=== PATIENT | male | born 1960 | race Caucasian/White ===

== ENCOUNTER → 2021-10-01 | Outpatient (CLI) | payer BC ==
--- NOTE | 2021-10-01 14:00 | Diagnostic Imaging Report ---
INDICATION: Meniscal tear of the right knee. TIME OF EXAM: 11:10 AM. FINDINGS: Four views of the right knee demonstrate medial compartmental degenerative change with joint space narrowing present. The lateral compartment is maintained. There is some mild patellofemoral degenerative change. No fracture, dislocation, or effusion is seen. IMPRESSION: Mild degenerative changes. No acute bony abnormality is detected. Dictated by: Dictated on workstation # [id number]
== END ==
LOC: ORTHO 10:42
PROVIDERS: ATTEND Orthopaedic Surgery
DX: M17.11 Unilateral primary osteoarthritis, right knee (principal)
CPT/HCPCS: 73564; 99213